=== PATIENT | male | born 1950 | race Caucasian/White ===

== ENCOUNTER 2019-10-29 11:46 | Outpatient (CLI) | payer MEDICARE, SELFPAY ==
--- NOTE | 2019-10-29 11:57 | XR_ITS ---
WS: [id number] SHOULDER RIGHT TECHNIQUE: 3 views of the right shoulder CLINICAL INFORMATION: ADHESIVE CAPSULITIS, RIGHT COMPARISON: None. FINDINGS: Mild degenerative arthritis right AC joint with hypertrophic spurring. Normal glenohumeral joint. Dis yoni clavicle is normal. No acute fractures. Visualized right lung is normal. XR/XR shoulder RT min 2V* [id number] IMPRESSION: Mild degenerative arthritis right AC joint and glenohumeral joint.
== END 2019-10-29 11:47 | disposition home or self-care (01) ==
LOC: RADWPI 11:53
PROVIDERS: Family Provider Family Medicine; PCP Family Medicine; Visit Provider Family Medicine
DX: M75.01 Adhesive capsulitis of right shoulder (principal); M19.011 Primary osteoarthritis, right shoulder
CPT/HCPCS: 73030

== ENCOUNTER 2019-11-15 14:39 | Outpatient (CLI) | payer MEDICARE, SELFPAY ==
--- NOTE | 2019-11-15 14:48 | MR_ITS ---
WS: [id number] MRI RIGHT SHOULDER HISTORY: ADHESIVE CAPSULITIS, RIGHT COMPARISON: 10/29/2019 TECHNIQUE: Multiplanar sequences of the shoulder joint are submitted. Moderate to severe arthritic changes at the AC joint. Hypertrophic bone formation with subchondral cy sts. There is fluid and increased T2 signal along the acromioclavicular ligament. Osteophyte extends 5 mm inferiorly towards the supraspinatus muscle from the distal clavicle. There are additional degen erative changes involving the acromion. There is no os acromion. Moderate amount of subacromial and s ubdeltoid fluid. There is an osteophyte from the distal undersurface of the acromion abutting the sup raspinatus tendon and muscle over the humeral head. Insertion site tear of the supraspinatus tendon without retraction or atrophy. There is additional te ndinopathy which is moderate in the subscapularis and supraspinatus tendons. No muscle edema or atrop hy. Biceps tendon is in normal position. No definite labral tear. There is a small amount of increase d signal in the superior labrum but does not complained extends completely through the labrum small a mount of fluid in the subscapularis recess. MR/MR shoulder RT wo con* [id number] IMPRESSION: 1. 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 2. Distal clavicle osteophyte and distal acromial undersurface osteophyte encr oachment upon the supraspinatus tendon. 3. Moderate amount of subacromial and subdeltoid bursal fluid. 4. Small insertion site tear supraspinatus tendon.
== END 2019-11-15 14:40 | disposition home or self-care (01) ==
LOC: RADSHAW 14:45
PROVIDERS: PCP Family Medicine; Visit Provider Family Medicine
DX: M75.01 Adhesive capsulitis of right shoulder (principal); M19.011 Primary osteoarthritis, right shoulder; M25.711 Osteophyte, right shoulder; M75.101 Unspecified rotator cuff tear or rupture of right shoulder, not specified as traumatic
CPT/HCPCS: 73221

== ENCOUNTER 2019-12-17 11:28 | Outpatient (RCR) | payer MEDICARE, SELFPAY | END 2019-12-29 23:59 | disposition home or self-care (01) | LOC: SPT 11:28 | PROVIDERS: PCP Family Medicine; Referring Provider Specialist; Visit Provider Specialist | DX: M25.511 Pain in right shoulder (principal); M25.611 Stiffness of right shoulder, not elsewhere classified | CPT/HCPCS: 97110; 97161 ==

== ENCOUNTER 2019-12-30 06:00 | Outpatient (RCR) | payer MEDICARE, SELFPAY | END 2020-01-28 23:59 | disposition home or self-care (01) | LOC: SPT 06:00 | PROVIDERS: PCP Family Medicine; Referring Provider Specialist; Visit Provider Specialist | DX: M25.511 Pain in right shoulder (principal); M25.611 Stiffness of right shoulder, not elsewhere classified | CPT/HCPCS: 97110 ==

== ENCOUNTER 2021-03-02 16:16 | Outpatient (CLI) | payer MEDICARE, SELFPAY ==
--- NOTE | 2021-03-02 16:31 | XRR_ITS ---
PROCEDURE INFORMATION: Exam: XR Chest Exam date and time: 03/02/2021 4:31 PM Age: 70 years old Clinical indication: Dyspnea; Additional info: Dyspnea; Chest pain TECHNIQUE: Imaging protocol: XR of the chest. Views: 2 views. COMPARISON: MR shoulder RT wo con* [id number] 11/15/2019 3:00 PM FINDINGS: Lungs: Unremarkable. No consolidation. Pleural spaces: Unremarkable. No pleural effusion. No pneumothorax. Heart/Mediastinum: Unremarkable. No cardiomegaly. Bones/joints: Unremarkable. XR/XR chest 2V* [id number] IMPRESSION: No acute findings.
== END 2021-03-02 16:17 | disposition home or self-care (01) ==
LOC: RAD 16:24
PROVIDERS: PCP Family Medicine; Visit Provider Family Medicine
DX: R06.00 Dyspnea, unspecified (principal); R07.9 Chest pain, unspecified
CPT/HCPCS: 71046

== ENCOUNTER 2021-05-18 07:33 | Outpatient (CLI) | payer MEDICARE, SELFPAY ==
--- NOTE | 2021-05-18 07:47 | USCV_ITS ---
Kaden Mueller Age: 71 Gender: M : 1950 Exam Date: 05/18/2021 08:26 Ordering Phys: Edwin Herrera MD ([email or web address]) Technologist: Exam Location: [facility] [place] Indication: cp BP: 159 / 85 HR: 57 Rhythm: Sinus Technical Quality: Adequate MEASUREMENTS (Male / Female) Normal Values 2D ECHO LV Diastolic Diameter PLAX 4.0 cm 4.2 - 5.9 / 3.9 - 5.3 cm LV Systolic Diameter PLAX 2.2 cm IVS Diastolic Thickness 0.9 cm 0.6 - 1.0 / 0.6 - 0.9 cm IVS Systolic Thickness 1.4 cm LVPW Diastolic Thickness 0.9 cm 0.6 - 1.0 / 0.6 - 0.9 cm LVPW Systolic Thickness 1.6 cm LVOT Diameter 2.2 cm LV Ejection Fraction 2D Teich 75.9 % LV Ejection Fraction MOD 2C 68.9 % LV Ejection Fraction 2C AL 69.2 % LA Diameter 3.1 cm Aorta at Sinotubular Diameter 2.7 cm M-MODE Aortic Annulus Diameter 3.6 cm LA Ao Ratio MM 1.0 MV E Point Septal Separation 0.9 cm DOPPLER AV Peak Velocity 98.0 cm/s LVOT Peak Velocity 84.0 cm/s AV Area Cont Eq vti 3.5 cm squared AV Area Cont Eq pk 3.2 cm squared MV Area PHT 5.0 cm squared Mitral E to A Ratio 1.4 MV E' Velocity 40.5 cm/s Mitral E to MV E' Ratio 9.2 Mitral E to LV E' Lateral Ratio 8.5 Mitral E to LV E' Septal Ratio 10.1 TR Peak Velocity 166.3 cm/s TR Peak Gradient 11.1 mmHg TV Peak E Velocity 109.0 cm/s Right Atrial Pressure 3.0 mmHg Pulmonary Artery Systolic Pressu 14.1 mmHg PV Peak Velocity 94.0 cm/s FINDINGS Left Ventricle Normal left ventricular size and systolic function, EF 75 %. No regional wall motion abnormalities. Right Ventricle The right ventricle is normal in size and function. Right Atrium The right atrium is normal in size. Left Atrium The left atrium is normal in size. Mitral Valve Thickened mitral valve. Trace mitral valve regurgitation. Aortic Valve Thickened aortic valve. Tricuspid Valve No gross abnormalities noted Pulmonic Valve Pulmonic valve not well visualized. Pericardium Normal pericardium without effusion. Aorta Normal ascending aorta dimension. CONCLUSIONS Normal left ventricular size and systolic function, EF 75 %. No regional wall motion abnormalities. Thickened mitral valve. Trace mitral valve regurgitation. Thickened aortic valve. There is no pericardial effusion. There are no intracardiac masses. No previous study is available for comparison. Dr Edwin Herrera MD FACC (Electronically Signed) Final Date: 18 May 2021 19:40 S
[2021-05-18 08:15] VITALS: BMI 26.6
--- NOTE | 2021-05-18 09:22 | ECG_ITS ---
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 Interpretive Statements NAME OF STUDY: EXERCISE SESTAMIBI STRESS TEST INDICATION: Chest Pain abnormal ekg, PROCEDURE: The baseline electrocardiogram showed [normal sinus rhythm with aberrantly conducted supraventricular ectopics. At the baseline, the patient's blood pressure was 142/80 mm Hg with a heart rate of 61. The patient exercised for 11 minutes and 50 seconds on a standard Jacinto protocol. Patient attained a maximum heart rate of 136 beats per minute(91% of the maximum predicted heart rate) with a blood pressure at the peak exercise of 215/90 mm Hg. The EKG at the peak exercise revealed some nonspecific ST-T changes in the inferolateral leads. Patient did not have any chest pain or any significant arrhythmis with the exercise Sestamibi was injected 1 minute prior to the peak exercise During the recovery phase, there were no new changes. Blood pressure at the end of the recovery phase was 147/82 mm Hg with a heart rate of 80 per minute. CONCLUSION: 1. Nonspecific EKG changes with the treadmill exercise 2. No exercise-induced chest pain or cardiac arrhythmia 3. Good impaired exercise tolerance, attained a maximum of 13.5 METs 4. Sestamibi/Sestamibi perfusion results pending; see separate report. Electronically Signed On 05-22-2021 13:10:29 CDT by Edwin Herrera M.D. [email or web address]
--- NOTE | 2021-05-18 09:23 | NMCV_ITS ---
NM laverne perf SPECT r/s* [id number] JessaKaden wang Age: 71 Gender: M : 1950 Exam Date: 05/18/2021 09:24 Ordering Phys: Edwin Herrera MD ([email or web address]) Technologist: DAVID Rogel Exam Location: [facility] Indications: SHORTNESS OF BREATH STRESS TEST [facility] IMAGE PROTOCOL Rest/Stress 1 Exercise Day Radiopharmaceutical Dose (mCi) Administration Site Administered by Rest: Tc-99m 10.7 IV DAVID Rogel Sestamibi Stress:Tc-99m 32.5 IV DAVID Downing Sestamibi Rest: 18-May-2021 60 Discovery 630 Stress: 18-May-2021 30 Discovery 630 Radiopharmaceutical was injected at 90% maximum heart rate. Images obtained in supine and prone position. SPECT RESULTS Technical Quality: Excellent Raw Data Analysis: Normal Image Corrections: No attenuation or motion correction applied Summed Stress Score: 0 Summed Rest Score: 0 Summed Difference Score: 0 PERFUSION FINDINGS Fairly uniform myocardial tracer uptake. No significant perfusion abnormalities were noted FUNCTIONAL RESULTS (calculated via Gated SPECT) Stress Image LV EF (%): 82 Stress EDV (mL):67 TID: 0.63 Stress ESV (mL):12 FUNCTIONAL FINDINGS: Segmental wall motion analysis revealing no gross wall motion abnormalities IMPRESSIONS 1. Unremarkable myocardial perfusion imaging. 2. Normal LV ejection fraction of 82%. 3. LV wall motion analysis revealing no gross wall motion abnormalities 4. Normal LV volume Low probability for coronary ischemia, based on the above findings Dr Edwin Herrera MD FACC (Electronically Signed) Final Date: 18 May 2021 18:59 S
[2021-05-18 10:18] VITALS: BP 147/82; PULSE 81
== END 2021-05-18 07:34 | disposition home or self-care (01) ==
LOC: RAD 07:37 → CDL 08:19
PROVIDERS: PCP Family Medicine; Visit Provider Internal Medicine Cardiovascular Disease
DX: R07.9 Chest pain, unspecified (principal); R06.02 Shortness of breath; I08.0 Rheumatic disorders of both mitral and aortic valves
CPT/HCPCS: 78452; 93017; 93306; A9500

== ENCOUNTER → 2021-05-25 10:12 | Outpatient (BNVA) | payer MEDICARE, SELFPAY | PROVIDERS: PCP Family Medicine; Visit Provider Internal Medicine Cardiovascular Disease | DX: I20.9 Angina pectoris, unspecified (principal); R06.00 Dyspnea, unspecified; I10 Essential (primary) hypertension | CPT/HCPCS: 99213; 99214; G0463 ==

== ENCOUNTER → 2022-01-14 10:37 | Outpatient (BNVA) | payer MEDICARE, SELFPAY | PROVIDERS: PCP Family Medicine; Visit Provider Clinical Nurse Specialist Adult Health | DX: E03.9 Hypothyroidism, unspecified (principal); I10 Essential (primary) hypertension; R06.00 Dyspnea, unspecified | CPT/HCPCS: 80053; 80061; 84484; 85025 ==

== ENCOUNTER → 2022-01-15 09:51 | Outpatient (BNVA) | payer MEDICARE, SELFPAY | PROVIDERS: PCP Family Medicine; Visit Provider Clinical Nurse Specialist Adult Health | DX: E03.9 Hypothyroidism, unspecified (principal); I10 Essential (primary) hypertension; R06.00 Dyspnea, unspecified; R73.01 Impaired fasting glucose; E11.9 Type 2 diabetes mellitus without complications | CPT/HCPCS: 83036 ==

== ENCOUNTER → 2022-08-23 09:42 | Outpatient (BNVA) | payer MEDICARE, SELFPAY | PROVIDERS: PCP Family Medicine; Visit Provider Family Medicine | DX: E03.9 Hypothyroidism, unspecified (principal); I10 Essential (primary) hypertension; R73.01 Impaired fasting glucose | CPT/HCPCS: 80053; 80061; 83036; 84443; 85025 ==

== ENCOUNTER → 2022-09-16 13:36 | Outpatient (BNVA) | payer MEDICARE, SELFPAY | PROVIDERS: PCP Family Medicine; Visit Provider Family Medicine | DX: R50.9 Fever, unspecified (principal); R51.9 Headache, unspecified | CPT/HCPCS: 80053; 85007; 85025; 86140; 87426 ==

== ENCOUNTER → 2022-09-20 10:50 | Outpatient (BNVA) | payer MEDICARE, SELFPAY | PROVIDERS: PCP Family Medicine; Visit Provider Family Medicine | DX: R50.9 Fever, unspecified (principal); R51.9 Headache, unspecified | CPT/HCPCS: 80053; 85025; 86140 ==

== ENCOUNTER → 2024-09-12 08:18 | Outpatient (BNVA) | payer MEDICARE, SELFPAY | PROVIDERS: PCP Family Medicine; Visit Provider Family Medicine | DX: E03.9 Hypothyroidism, unspecified (principal); R53.83 Other fatigue; I10 Essential (primary) hypertension | CPT/HCPCS: 80053; 80061; 82607; 83880; 84443; 85025; 86140 ==

== ENCOUNTER → 2024-10-11 10:19 | Outpatient (BNVA) | payer MEDICARE, SELFPAY | PROVIDERS: PCP Family Medicine; Visit Provider Family Medicine | DX: R73.01 Impaired fasting glucose (principal) | CPT/HCPCS: 83036 ==

== ENCOUNTER → 2024-10-17 08:34 | Outpatient (BNVA) | payer MEDICARE, SELFPAY | PROVIDERS: PCP Family Medicine; Visit Provider Family Medicine | DX: R73.03 Prediabetes (principal) | CPT/HCPCS: 83036 ==